=== PATIENT | female | born 1980 | race Caucasian/White ===

== ENCOUNTER 2021-07-12 12:06 | Emergency (ER) | payer OTHER, SELFPAY ==
[2021-07-12 12:15] VITALS: BP 112/75; PULSE 97; RESP 18; TEMP 38.1; O2SAT 95
[2021-07-12] MEDS: ONDANSETRON INJ 4 MG/2 ML VIAL IV PUSH (12:45)
[2021-07-12] MEDS: SODIUM CHLORIDE 0.9% IV 1,000 ML 999 ML IV CONT (12:58)
[2021-07-12] MEDS: KETOROLAC 30 MG/ML VIAL (*BKC) IV PUSH (12:59)
--- NOTE | 2021-07-12 13:40 | ED.URI ---
HPI - URI/Sore Throat General Chief Complaint: Upper Respiratory Infection Stated Complaint: Fatigue/fever/possible covid Source: patient and family Mode of arrival: ambulatory Limitations: no limitations History of Present Illness HPI Narrative: Pt started having COVID sxs at the end of june. her test was positive on jul 05. She has felt achy tired and feverish ever since. She isnt really having cough, except in the mornings. She just feels terrible and wants to know it there is anything that will make it go away. Onset (ago): week(s) Consistency: constant Able to tolerate fluids by mouth: Yes Exacerbating factors: nothing Relieving factors: nothing Associated symptoms: myalgias, headache, nasal congestion and nausea Treatments prior to arrival: acetaminophen Review of Systems Constitutional: Constitutional: Reports no additional constitutional complaints Eyes: Eyes: Reports no additional eye complaints ENT: Reports system reviewed and no additional complaints, except as documented Cardiovascular: Cardiovascular: Reports no additional cardiovascular complaints Respiratory: Respiratory: Reports no additional respiratory complaints Gastrointestinal: Gastrointestinal: Reports abdominal pain, Reports nausea and Reports vomiting Genitourinary: Genitourinary: Reports no additional female genitourinary complaints Musculoskeletal: Musculoskeletal: Reports no additional musculoskeletal complaints Integumentary/Breasts: Skin/Breast: Reports system reviewed and no additional complaints, except as docu Neurologic: Reports system reviewed and no additional complaints, except as documented Psychiatric: Psychiatric: Reports no additional psychiatric complaints Endocrine: Endocrine: Reports no additional endocrine complaints Hematologic/Lymphatic: Hematologic/Lymphatic: Reports no additional hematologic/lymphatic complaints Allergic/Immunologic: Allergic/Immunologic: Reports no additional allergic/immunologic complaints [facility] Social History Social History (Updated 07/12/21 @ 13:49 by Mary Sorto MD) Smoking status: Never smoker Alcohol intake: current Substance use: never Exam Const: General: no acute distress and alert Nutritional Appearance: well nourished and thin Orientation/consciousness: patient oriented x3 HENMT: Head: normal to inspection Eyes: Conjunctivae: conjunctivae normal Pupils: Equal, round and reactive pupils present Neck: Neck: normal visual inspection Chest: Chest palpation & inspection: normal inspection of the chest Resp: Effort & Inspection: normal respiratory effort Auscultation: clear to auscultation bilaterally Cardio: Rate: regular rate Rhythm: regular rhythm GI: GI Palp: Yes Soft to palpation, No Tenderness to palpation present (GI) and No Guarding due to palpation present (GI) Auscultation: normal bowel sounds : General: Yes no CVA tenderness Back/Spine/Pelvis: Back: no CVA tenderness Skin: General skin exam: normal color Rashes: no rashes Neuro: General: patient oriented x3, moves all extremities and no meningeal signs Extrem: General: normal to inspection Psych: Appearance: grossly normal Mental Status: mental status grossly normal Thought content: Yes Normal thought content present Course Course Emergency Course: ivf, pain aand nausea med given Vital Signs Vital signs: Vital Signs Temperature 38.1 C H 07/12/21 12:15 Pulse Rate 97 07/12/21 12:15 Respiratory Rate 18 07/12/21 12:15 Blood Pressure 112/75 07/12/21 12:15 Pulse Oximetry 95 07/12/21 12:15 Temperature 38.1 C H 07/12/21 12:15 Pulse Rate 97 07/12/21 12:15 Respiratory Rate 18 07/12/21 12:15 Blood Pressure 112/75 07/12/21 12:15 Pulse Oximetry 95 07/12/21 12:15 Discharge Plan Discharge Clinical Impression: COVID Patient Disposition: Home, Self-Care Condition: Stable Instructions: Antibiotic Form, COVID-19 (Coronavirus Disease 201
[2021-07-12 13:56] VITALS: BP 102/61; PULSE 64; RESP 20; TEMP 37.2; O2SAT 100
== END 2021-07-12 14:10 | disposition home or self-care (01) ==
PROVIDERS: Emergency Provider Emergency Medicine; PCP Nurse Practitioner
DX: U07.1 COVID-19 (principal)
CPT/HCPCS: 96374; 96375; 99283; 99284; J1885; J2405; J7030

== ENCOUNTER 2022-06-10 08:30 | Outpatient (CLI) | payer OTHER, SELFPAY ==
--- NOTE | 2022-06-21 17:29 | WPDHOMESLEEP ---
Sleep Study - Home Unattended Date of Study: 06/10/22 Ordering Provider: Jimena Krishnamurthy, REGIONAL PSYCHIATRIC DIRECTOR- Interpreting Provider: Jacqueline Hernandez, DO Home Sleep Study Type: Apnea Link Air Height: 1.73 m Weight: 108.862 kg Body Mass Index: 36.5 Neck Circumference (inches): 14.5 [place]: 15 Reason for Sleep Study Unrefreshing sleep and daytime hypersomnia Sleep History The patient is a 42-year-old female anxiety, seasonal allergies, GERD, anemia and tobacco use that had a sleep study ordered for evaluation of daytime hypersomnia. The patient denies awakening from sleep short of breath. She denies awakening at night with heartburn, belching or cough. She occasionally snores but it is rarely loud enough that others complain. She frequently has trouble sleeping when she has a cold. She denies waking up gasping for air throughout the night. She denies having breathing problems at night observed by herself or others. She occasionally sweats excessively at night. She denies having heart palpitations or irregular heartbeats during the night. She frequently falls asleep during the day but never while driving. She denies cataplexy. She occasionally has trouble at school or work due to sleepiness. She rarely feels unable to move while waking up or falling asleep. She denies feeling afraid of going to sleep. She occasionally has nightmares and constantly remembers her dreams. She constantly has thoughts racing through her mind. She occasionally feels sad, depressed and anxious. She frequently has muscular tension. She frequently notices parts of her body jerk. She occasionally kicks during the night. She denies having crawling and aching feelings in her legs as well as leg pain during the night. She denies grinding her teeth during sleep and denies awakening with morning jaw pain. She is frequently bothered by pain during the day and frequently awakened by pain during the night. She rarely wakes up feeling stiff in the morning. She occasionally wakes up with sore or achy muscles. She occasionally wakes up with pain in the neck, spine and other joints. She goes to bed at midnight on weekdays and between 2-3 a.m. on the weekends. It takes her 30-45 minutes to fall asleep. She does not typically wake up often throughout the night. If she awakens, she will look at the [place]. She wakes up at 7:00 a.m. on weekdays and between 11:00 a.m. to noon on the weekends. She typically gets 6-7 hours of sleep per night. She will stay in bed for 5-10 minutes after waking up in the. She currently lives with her 2 children. She does not consume any caffeinated beverages within 2 hours of bedtime. She does not engage in physical exercise before bedtime. She will watch television before falling asleep. She will take naps in the afternoon or the evening but they are not refreshing. She drinks 1 cup of caffeinated beverage per day. She smokes 5-10 cigarettes per day. She drinks 3 alcoholic beverages per day. She denies recreational drug use. [facility] Social History Social History Smoking status: Never smoker Alcohol intake: current Substance use: never Medications Home Medications Medication Instructions Recorded Confirmed Type ondansetron 4 mg disintegrating 4 mg PO Q8H #20 tabs 07/12/21 Rx tablet Sleep Procedure This test was performed using 4 channel monitoring including respiratory effort channel, snoring channel, heart rate channel, and oxygen saturation channel. This study was scored using [facility] guidelines. Sleep Architecture The patient had a total recording time of 8 hours 39 minutes and total monitoring time of 6 hours 49 minutes. The patient spent 5 hours, 73.4% of total monitoring time in the supine position. Respiratory Analysis The patient had an overall AHI of 1.2 and a central apnea index of 0.1. The supine AHI was 1. The patient had 1 apnea and 7 hypopneas
[2022-06-21 17:32] VITALS: BMI 36.5
--- NOTE | 2022-09-16 10:24 | SLEEP ---
new calls [id number]
== END 2022-06-11 10:31 | disposition home or self-care (01) ==
LOC: ANHCSM 08:32
PROVIDERS: PCP Nurse Practitioner; Visit Provider Nurse Practitioner
DX: G47.10 Hypersomnia, unspecified (principal)
CPT/HCPCS: 95806

== ENCOUNTER 2025-06-16 13:03 | Emergency (ER) | payer OTHER, SELFPAY ==
--- NOTE | ~2025-06-16 | XR_ITS ---
EXAMINATION: XR ribs RT 2V w CXR 2V DATE: 06/16/2025 13:27 INDICATION: Mid right chest pain post fall TECHNIQUE: PA and lateral views of the chest and 3 views of the right ribs were obtained. COMPARISON: None FINDINGS: No rib fractures identified. No pneumothorax. No focal infiltrates, pleural effusion or pulmonary edema. Cardiomediastinal silhouette is normal. IMPRESSION: 1. No rib fracture or acute cardiopulmonary disease. Reviewed, dictated and finalized at location A. S
[2025-06-16 13:04] VITALS: BP 157/113; PULSE 110; RESP 20; TEMP 36.7; O2SAT 100
--- NOTE | 2025-06-16 13:11 | ED.FALL ---
HPI - Fall General Chief Complaint: Fall Stated Complaint: rib pain after a fall Time Seen by Provider: 06/16/25 13:10 Source: patient Mode of arrival: ambulatory Limitations: no limitations History of Present Illness HPI Narrative: Patient is a 45-year-old female with a right chest pain after falling in the bathroom last night. She has 16 you had lateral right ribs pain with movements and palpation home. No nausea vomiting or diarrhea. No chest pain or shortness of breath. This occurred only after the fall. She did not hit the bathtub or bathroom toilet or sink. No other injuries to include head or neck. complaint: fall Onset (ago): day(s) (Two) Fall from: standing Fall witnessed: no Place fall occurred: home Loss of consciousness: none Prolonged down time: no Symptoms prior to fall: none Context: tripped/slipped Location of injury: chest (Right side) Severity: moderate Severity scale (1-10): 6 Quality: sharp Associated symptoms (after fall): denies Related Data Allergies Allergy/AdvReac Type Severity Reaction Status Date / Time Unable to Assess Allergy Verified 06/16/25 13:07 Review of Systems Review of Systems: All systems reviewed & are unremarkable except as noted in HPI and below Constitutional: Constitutional: Reports no additional constitutional complaints Eyes: Eyes: Reports no additional eye complaints ENT: Reports system reviewed and no additional complaints, except as documented Cardiovascular: Cardiovascular: Reports no additional cardiovascular complaints Respiratory: Respiratory: Reports no additional respiratory complaints Gastrointestinal: Gastrointestinal: Reports no additional gastrointestinal complaints Genitourinary: Genitourinary: Reports no additional female genitourinary complaints Musculoskeletal: Musculoskeletal: Reports no additional musculoskeletal complaints Integumentary/Breasts: Skin/Breast: Reports system reviewed and no additional complaints, except as docu Neurologic: Reports system reviewed and no additional complaints, except as documented Psychiatric: Psychiatric: Reports no additional psychiatric complaints Endocrine: Endocrine: Reports no additional endocrine complaints Hematologic/Lymphatic: Hematologic/Lymphatic: Reports no additional hematologic/lymphatic complaints Allergic/Immunologic: Allergic/Immunologic: Reports no additional allergic/immunologic complaints PMF[facility] Social History Social History Smoking status: Never smoker Alcohol intake: current Substance use: never Exam Const: General: healthy appearing Nutritional Appearance: well nourished Orientation/consciousness: patient oriented x3 HENMT: Head: normal to inspection Ears: external ears normal Face/Nose/Sinus: Normal external nose present Eyes: Conjunctivae: conjunctivae normal Pupils: Equal, round and reactive pupils present EOM: EOMs intact bilaterally Neck: Neck: normal visual inspection Chest: Chest palpation & inspection: normal inspection of the chest Other: Tender right midclavicular more so lateral under the right breast to palpation around the 3rd to 5th rib Resp: Effort & Inspection: normal respiratory effort and not labored Auscultation: clear to auscultation bilaterally and no crackles Cardio: Rate: regular rate Rhythm: regular rhythm Heart sounds: no murmurs GI: Inspection: non-distended Auscultation: normal bowel sounds, bowel sounds present, no hyperactive bowel sounds and no hypoactive bowel sounds : General: Yes bladder normal to palpation Back/Spine/Pelvis: Back: no CVA tenderness Skin: General skin exam: normal color Rashes: no rashes Wounds: no wounds Neuro: General: patient oriented x3, moves all extremities and no meningeal signs Cranial nerves: Yes Nystagmus not present Speech: normal speech Gait exam (Neuro): Normal gait present Extrem: General: normal to inspection, no clubbing, cyanosis or edema and no pedal edema Psych: Mental Status: mental status grossly normal Affect: normal affect Attitude: cooperative Course Vital Signs Vital signs: Vital Signs Temperature 36.7 C 06/16/25 13:04 Pulse Rate 110 H 06/16/25 13:04 Respiratory Rate 20 06/16/25 13:04 Blood Pressure 157/113 H 06/16/25 13:04 Pulse Oximetry 100 06/16/25 13:04 Oxygen Delivery Room Air 06/16/25 13:04 Temperature 36.7 C 06/16/25 13:04 Pulse Rate 110 H 06/16/25 13:04 Respiratory Rate 20 06/16/25 13:04 Blood Pressure 157/113 H 06/16/25 13:04 Pulse Oximetry 100 06/16/25 13:04 Oxygen Delivery Room Air 06/16/25 13:08 [facility] Narrative Medical decision making narrative: Patient is a 45-year-old female with right chest pain of the ribs after fall to the floor yesterday. X-ray with chest x-ray of ribs. Toradol. Home with [place]. Differential Diagnosis Differential Diagnosis: Right rib fractures, right rib strain, right rib sprain Imaging Data Attestation: I personally reviewed and interpreted this imaging study as follows: Radiologist's impression: ITS Impressions Ribs w/Chest X-Ray 06/16/25 13:28 IMPRESSION: 1. No rib fracture or acute cardiopulmonary disease. Discharge Plan Discharge Clinical Impression: Rib sprain Qualifiers: Encounter type: initial encounter Qualified Code(s): S23.41XA - Sprain of ribs, initial encounter Contusion of rib Qualifiers: Encounter type: initial encounter Qualified Code(s): S29.8XXA - Other specified injuries of thorax, initial encounter Patient Disposition: Home Condition: Stable Instructions: Antibiotic Form, Rib Contusion (ED) Patient Language: Sudanese Prescriptions: New hydrocodone-acetaminophen 10-325 mg tablet 1 tablet PO Q8H PRN (Reason: pain) Qty: 20 0RF Rx Instructions: 1/2-1 tab per dose No Action ondansetron 4 mg tablet,disintegrating 4 mg PO Q8H Qty: 20 0RF Follow-up/Referrals: Daive,Les Monsivais NP [Primary Care Provider, [facility]] Time of Disposition: 13:50
[2025-06-16] MEDS: KETOROLAC (*BKC) 60 MG/2 ML VIAL IM (13:15)
[2025-06-16 14:02] VITALS: BP 157/92; PULSE 90; RESP 16; O2SAT 99
== END 2025-06-16 14:04 | disposition home or self-care (01) ==
PROVIDERS: Emergency Provider Emergency Medicine; PCP Nurse Practitioner Family
DX: S23.41XA Sprain of ribs, initial encounter (principal); S29.8XXA Other specified injuries of thorax, initial encounter; W01.0XXA Fall on same level from slipping, tripping and stumbling without subsequent striking against object, initial encounter; Y92.002 Bathroom of unspecified non-institutional (private) residence as the place of occurrence of the external cause
CPT/HCPCS: 71046; 71100; 96372; 99283; J1885